=== PATIENT | female | born 2000 | race Caucasian/White ===

== ENCOUNTER 2020-03-22 01:08 | Inpatient (IN) | payer OTHER ==
[2020-03-22] MEDS ORDERED: DEXTROSE 5%-LACTATED RINGERS 1,000 ML IV SCH (05:15)
--- NOTE | 2020-03-22 05:30 | HP ---
Past Medical History - Primary Care Physician PCP:: Paramjit Hinds - Admission Chief Complaint: 19yo P0 with at EGA 37w4d admitted with PROM to L&D. History of Present Illness: with uncomplicated care. PROM at 11:30pm on 03/21/2020. History Source: Patient, Medical Record Limitations to Obtaining History: No Limitations - Past Medical History MEDICAL ASSISTANT OB GYN: No: Alzheimer's, CVA, Dementia, Migraine, Multiple Sclerosis, Peripheral Neuropathy, Parkinson's, Seizure, Syncope, TIA, Vertigo, Other Cardiovascular: No: AFIB, Aneurysm, Aortic Insufficiency, Aortic Stenosis, CAD, CHF, Deep Vein Thrombosis, HTN, Hyperlipdemia, [place], Mitral Insufficiency, Mitral Stenosis, Murmur, Pulmonary Hypertension, Other Pulmonary: No: Asthma, Bronchitis, Cancer, COPD, O2 Dependent, Pneumonia, Previously Intubated, Pulmonary Embolus, Pulmonary Fibrosis, Sleep Apnea, Other Gastrointestinal: No: Ascites, Cancer, Constipation, Crohn's Disease, Diverticulitis, Diverticulosis, Esophageal Varices, Gastritis, GERD, GI Bleed, Hemorrhoids, Hiatal Hernia, Inflamatory Bowel Disease, Irritable Bowel Disease, Pancreatitis, Peptic Ulcer Disease, Ulcerative Colitis, Other Hepatobiliary: No: Cirrhosis, Cholelithiasis, Cholecystitis, Choledocholithiasis, Hepatitis A, Hepatitis B, Hepatitis C, Other Renal/: No: Renal Failure, Renal Inusuff, BPH, Cancer, Hematuria, Hemodialysis, Neurogenic Bladder, Renal Calculi, UTI, Other Reproductive: No: Ectopic , Endometriosis, Fibroids, PID, Polycystic Ovary Syndrome, Postmenopausal, Other ...: 1 ...Para: 0 Heme/Onc: No: Anemia, B12 Deficiency, Bleeding Disorder, Cancer, Current Chemotherapy, Current Radiation Therapy, Hemochromatosis, Hypercoaguable State, Myeloproliferative Synd, Sickle Cell Disease, Sickle Cell Trait, Thrombocytopenia, Other Infectious Disease: No: AIDS, C-Diff, Herpes Zoster, HIV, MRSA, STD's, Tuberculosis, VREF, Other Psych: No: Addictions, Anxiety, Bipolar, Depression, Panic, Psychosis, Schizophrenia, Other Musculoskeletal: No: Bursitis, Chronic low back pain, Hemiparesis, Hemiplegia, Osteoarthritis, Paraplegia, Other Rheumatology: No: Fibromyalgia, Gout, Lupus, Rheumatoid Arthritis, Sarcoidosis, Vasculitis, Other ENT: No: Allergic Rhinitis, Sinusitis, Other Endocrine: No: Willard's Disease, [place]'s Disease, Diabetes Insipidus, Diabetes Mellitus, Hyperparathyroidism, Hyperthyroidism, Hypothyroidism, Osteopenia, SIADH, Other Dermatology: No: Basal Cell, Cellulitis, Eczema, Melanoma, Psoriasis, Squamous Cell, Other - Past Surgical History Past Surgical History: Yes: None Hx Myomectomy: No Hx Transabdominal Cerclage: No - Smoking History Have you smoked in the past 12 months: No - Alcohol/Substance Use Hx Alcohol Use: No History of Substance Use: reports: None - Social History Usual Living Arrangement: Yes: With Parent Do you think of yourself as: Straight/Heterosexual ADL: Independent History of Recent Travel: No Home Medications - Allergies Allergies/Adverse Reactions: Allergies Allergy/AdvReac Type Severity Reaction Status Date / Time No Known Allergies Allergy Verified 03/22/20 03:31 - Home Medications Home Medications: Ambulatory Orders Pnv No.95/Ferrous Fum/Folic AC [ Vitamin Tablet] 1 each PO DAILY 03/22/20 Family Medical History Family Hx Cancer: Mother (breast) Review of Systems - Review of Systems Constitutional: reports: No Symptoms, Other (leaking clear amniotic fluids) Eyes: reports: No Symptoms HENT: reports: No Symptoms Neck: reports: No Symptoms Cardiovascular: reports: No Symptoms Respiratory: reports: No Symptoms Gastrointestinal: reports: No Symptoms Genitourinary: reports: No Symptoms Breasts: reports: No Symptoms Reported Musculoskeletal: reports: No Symptoms Integumentary: reports: No Symptoms Neurological: reports: No Symptoms Endocrine: reports: No Symptoms Hematology/Lymphatic: reports: No Symptoms Psychiatric: reports: No Symptoms Physical Exam - Maternity Vital Signs: Vital Signs Temperature 98.5 F 03/22/20 04:00 Pulse Rate 79 03/22/20 03:00 Respiratory Rate 20 03/22/20 03:00 Blood Pressure 131/82 03/22/20 03:00 O2 Sat by Pulse Oximetry (%) Constitutional: Yes: Well Nourished, No Distress, Calm Eyes: Yes: WNL, Conjunctiva Clear, EOM Intact HENT: Yes: WNL, Atraumatic, Normocephalic Neck: Yes: WNL, Supple, Trachea Midline Cardiovascular: Yes: WNL, Regular Rate and Rhythm Lungs: Clear to auscultation, Normal air movement Breast(s): Yes: WNL - Abdominal Exam/OB Fundal Height: 38 Number of Fetuses: Single Presentation: Vertex Contractions: Yes Regularity: Irregular Intensity: Unaware Monitor Mode: External Heart Rate (range): 130 Heart Rate Location: Midline Category: I Accelerations: Non-Uniform Decelerations: None - Vaginal Exam/OB Vaginal Bleeding: No Dilatation (cm): 0 Effacement (%): 0 Amniotic Membrane Status: Leaking Nitrazine Test: Positive Amniotic Fluid: Yes: Clear Presentation: Vertex/Position Station: -3 - Physical Exam Musculoskeletal: Yes: WNL Extremities: Yes: WNL Edema: No Integumentary: Yes: WNL Deep Tendon Reflex Grade: Normal +2 ...Motor Strength: WNL Psychiatric: Yes: WNL, Alert, Oriented Hemorrhage Risk Assessment - Risk Factors Medium Risk Factors: Yes: None High Risk Factors: Yes: None Risk Score: 1 Risk Level: Medium Risk Imaging - Results Ultrasound: Report Reviewed Assessment/Plan 19yo P0 with at EGA 37w4d admitted with PROM to L&D. The pt is not in labor. Fetus with Category I tracing. We discussed management plans. I explained labor induction vs. expectant management and risks, benefits of both plans. I explained the risks of chorioamnionitis, uterine tachysystole, distress, etc. The pt prefers expectant management and refused labor indx.
[2020-03-22 05:33] LABS: BASO % 0.6 % (0-2.0); EOS % 0.7 % (0-4.5); HEMATOCRIT 31.6 % (32.4-45.2); HEMOGLOBIN 10.6 GM/dL (10.7-15.3); LYMPH % 20.2 % (8-40); MCHC 33.5 g/dl (32.0-36.0); MEAN CELL VOLUME 86.7 fl (80-96); MEAN PLT VOLUME 8.3 fl (7.5-11.1); MONO % 6.3 % (3.8-10.2); NEUT % 72.2 % (42.8-82.8); PLATELET COUNT 259 K/MM3 (134-434); RBC 3.64 M/mm3 (3.60-5.2); RDW 13.5 % (11.6-15.6); WHITE BLOOD COUNT 10.1 K/mm3 (4.0-10.0)
[2020-03-22 05:42] LABS: INR 0.85 (0.83-1.09)
[2020-03-22 05:44] LABS: ACTIVATED PTT 24.7 SECONDS (25.2-36.5)
[2020-03-22 05:54] VITALS: BMI 29.5
[2020-03-22 06:03] LABS: CALCIUM 8.6 mg/dL (8.5-10.1); CREATININE 0.5 mg/dL (0.55-1.3); POTASSIUM 4.1 mmol/L (3.5-5.1)
[2020-03-22 09:22] LABS: POC NITRAZINE POS
[2020-03-22] MEDS ORDERED: OXYTOCIN 30 UNITS in 0.9% NS 30 UNIT/500 ML INFUS.BAG IVPB ONE (11:45)
--- NOTE | 2020-03-22 12:06 | PN ---
Ante-Partal Exam - Subjective Subjective: Patient reports contractions Q 10 minutes, 8/10 pain Vital Signs: Vital Signs Temperature 98.7 F 03/22/20 11:00 Pulse Rate 71 03/22/20 11:00 Respiratory Rate 18 03/22/20 11:00 Blood Pressure 128/74 03/22/20 11:00 O2 Sat by Pulse Oximetry (%) Bleeding: No Headache: No Visual changes: No Right upper quadrant pain: No - Contractions Contractions: Yes Regularity: Irregular Intensity: Moderate Monitor Mode: External - Exam during Labor Heart Rate: 140 Variability: Moderate Category: I Monitor Accelerations: Present Monitor Decelerations: None Exam: Vaginal Dilatation (cm): 3 Effacement (%): 50 Amniotic Membrane Status: Ruptured Amniotic Fluid: Clear Presentation: Vertex Station: -3 - Intrapartum Hemorrhage Risk Medium Risk Factors: None High Risk Factors: None Risk Score: 0 Risk Level: Low Risk - Assessment/Plan Assessment/Plan: 19 yo @ 37 wks, PROM 1. Irregular contractions, discussed augmentation with pitocin. Discussed risks/benefts including but not limited to uterine tachysystole, heartrate changes and intolerance of labor. Reviewed risk of prolonged rupture, risk of chorioamnionitis, risk of delivery. She expressed understanding. 2. GBS neg 3. Pain well controlled, will offer pain control upon patient request 4. Will proceed with expectant management.
[2020-03-22] MEDS ORDERED: OXYTOCIN 30 UNITS in 0.9% NS 30 UNIT/500 ML INFUS.BAG IVPB SCH (12:15)
[2020-03-22] MEDS ORDERED: PCA PUMP NR ONE ×2 (12:54→20:48)
[2020-03-22] MEDS ORDERED: FENTANYL/BUPIVACAINE/NS/PF - PCEA - 50 ML DISP.SYRIN EP ONE ×3 (12:55→20:48)
[2020-03-22] MEDS ORDERED: NALOXONE HCL 0.4 MG/ML VIAL IVPUSH PRN (13:14)
[2020-03-22] MEDS ORDERED: FENTANYL/BUPIVACAINE/NS/PF - PCEA - 50 ML DISP.SYRIN EP SCH (13:15)
[2020-03-22] MEDS ORDERED: BUPIVACAINE HCL/PF 0.25% (2.5MG/ML) 10 ML VIAL ONE ×2 (13:16→18:16)
[2020-03-22] MEDS ORDERED: ONDANSETRON 4 MG/2 ML VIAL IVPB ONE (14:23)
[2020-03-22] MEDS ORDERED: ONDANSETRON 4 MG/2 ML VIAL ONE (14:35)
--- NOTE | 2020-03-22 15:58 | PN ---
Ante-Partal Exam - Subjective Subjective: Patient comfortable s/p epidural Vital Signs: Vital Signs Temperature 98.5 F 03/22/20 15:00 Pulse Rate 64 03/22/20 15:15 Respiratory Rate 17 03/22/20 15:15 Blood Pressure 131/80 03/22/20 15:15 O2 Sat by Pulse Oximetry (%) 99 03/22/20 15:15 Bleeding: No Headache: No Visual changes: No Right upper quadrant pain: No - Contractions Contractions: Yes Regularity: Regular Intensity: Unaware Monitor Mode: External - Exam during Labor Heart Rate: 145 Variability: Moderate Category: I Monitor Accelerations: Present Monitor Decelerations: None Exam: Vaginal Dilatation (cm): 4 Effacement (%): 80 Presentation: Vertex Station: -2 - Intrapartum Hemorrhage Risk Medium Risk Factors: None High Risk Factors: None Risk Score: 0 Risk Level: Low Risk - Assessment/Plan Assessment/Plan: 19 yo @ 37 wks, PROM on pitocin 1. Pitocin at 8 Cervical change noted Will continue pitocin per protocol 2. GBS neg 3. Pain well controlled with epidural 4. Will proceed with expectant management
[2020-03-22] MEDS ORDERED: AMPICILLIN - 2 GM in SODIUM CHLORIDE 100 ML IVPB ONE (18:20)
[2020-03-22] MEDS ORDERED: AMPICILLIN SODIUM 2 GM VIAL ONE (18:28)
[2020-03-22] MEDS ORDERED: ELECTROLYTE-148 SOLN 1,000 ML IV SCH (18:30)
--- NOTE | 2020-03-22 21:09 | PN ---
Ante-Partal Exam - Subjective Subjective: Patient comfortable Vital Signs: Vital Signs Temperature 98.0 F 03/22/20 20:00 Pulse Rate 98 H 03/22/20 20:00 Respiratory Rate 18 03/22/20 20:00 Blood Pressure 142/97 03/22/20 20:00 O2 Sat by Pulse Oximetry (%) 100 03/22/20 18:45 Bleeding: Yes (bloody show) Headache: No Visual changes: No Right upper quadrant pain: No - Contractions Contractions: Yes Intensity: Unaware Monitor Mode: External - Exam during Labor Heart Rate: 150 Variability: Moderate Category: II Monitor Accelerations: Present Monitor Decelerations: Variable Exam: Vaginal Dilatation (cm): 9 Effacement (%): 100 Amniotic Membrane Status: Ruptured Presentation: Vertex Station: -1 - Intrapartum Hemorrhage Risk Medium Risk Factors: None High Risk Factors: None Risk Score: 0 Risk Level: Low Risk - Assessment/Plan Assessment/Plan: 19 yo @ 37+ wks, augmentation of labor for PROM 1. Good cervical change, awaiting descent of head Will continue pitocin per protocol 2. GBS negative, was given ampicillin per hospital protocol 3. Pain well controlled with epidural 4. Will proceed with expectant management
[2020-03-22] MEDS ORDERED: OXYTOCIN 20 UNITS in 0.9% NS 20 UNIT/1,000 ML INFUS.BAG IV ONE (21:42)
[2020-03-22] MEDS ORDERED: LIDOCAINE HCL 1% PRESERVATIVE FREE - 30ML VIAL ONE (21:42)
[2020-03-22] MEDS ORDERED: AMPICILLIN SODIUM 1 GM VIAL ONE ×2 (21:43→21:49)
[2020-03-22] MEDS ORDERED: AMPICILLIN - 1 GM in SODIUM CHLORIDE 100 ML IVPB SCH (22:20)
[2020-03-23] MEDS ORDERED: BISACODYL 10 MG SUPP.RECT RC PRN
[2020-03-23] MEDS ORDERED: METHYLERGONOVINE MALEATE 0.2 MG/1 ML AMP IM PRN
[2020-03-23] MEDS ORDERED: OXYTOCIN 20 UNITS in 0.9% NS 20 UNIT/1,000 ML INFUS.BAG IV SCH
[2020-03-23] MEDS ORDERED: OXYTOCIN 20 UNITS in 0.9% NS 1,000 ML IV SCH
[2020-03-23] MEDS ORDERED: BENZOCAINE 20% 57 GM BOTTLE TP PRN
[2020-03-23] MEDS ORDERED: IBUPROFEN 600 MG TABLET (FP) PO PRN
[2020-03-23] MEDS ORDERED: ACETAMINOPHEN 325 MG TABLET (FP) PO PRN
[2020-03-23] MEDS ORDERED: WITCH HAZEL 50% (TUCKS) 40 PAD/JAR PAD TP PRN
[2020-03-23] MEDS ORDERED: BENZOCAINE 28 GM HEMORRHOIDAL OINTMENT TP PRN
--- NOTE | 2020-03-23 00:04 | PN ---
Delivery - Delivery Vaginal Delivery: No Problems Type of Anesthesia: Epidural Episiotomy/Laceration: Midline, Perineal Extension/lac (bilateral labial laceration), Vaginal Extension/lac, 2nd degree Delivery, Single - Stages of Labor Date 2nd Stage Initiated: 03/22/20 Date of Delivery: 03/22/20 Time of Delivery: 23:16 Date Placenta Delivered: 03/22/20 Time Placenta Delivered: 23:51 Placenta: Yes: Spontaneous - Condition of Gender: Male Position: Left, OA Total Hours ROM (Hrs/Mins): 24 hours, 16 minutes - 1 Minute Total Score: 8 5 Minutes Total Score: 9 - Feeding Plan Initial Plan: Exclusive throughout hospitalization Remarks - Remarks Remarks: Patient progressed to fully dilated and at 2316 via delivered a viable male in JACKIE position, APGARs 8,9. Weight and length unknown at this time. Head delivered spontaneously followed by shoulders and body without difficulty. Body cord delivered through. Infant with spontaneous cry and placed on mother's abdomen. Nose and mouth was bulb suctioned. Cord was clamped and cut. Perineum and vagina examined, a second degree laceration, bilateral sulcal extension, bilateral labial laceration was noted and repaired in the usual fashion. Rectal exam revealed no sutures in rectum. Placenta was delivered spontaneously and intact. 20 units of pitocin in 1 L IVF was given. All counts correct x 2. Mother and infant stable in LDR. EBL 400cc.
[2020-03-23] MEDS ORDERED: diphenhydrAMINE HCL 25 MG CAPSULE (FP) PO ONE ×2 (00:45→00:54)
[2020-03-23 08:38] LABS: BASO % 0.1 % (0-2.0); EOS % 0.4 % (0-4.5); HEMATOCRIT 26.6 % (32.4-45.2); HEMOGLOBIN 8.8 GM/dL (10.7-15.3); LYMPH % 9.4 % (8-40); MCH 28.9 pg (25.7-33.7); MCHC 33.1 g/dl (32.0-36.0); MEAN CELL VOLUME 87.2 fl (80-96); MEAN PLT VOLUME 8.4 fl (7.5-11.1); MONO % 4.6 % (3.8-10.2); NEUT % 85.5 % (42.8-82.8); PLATELET COUNT 215 K/MM3 (134-434); RBC 3.05 M/mm3 (3.60-5.2); RDW 13.2 % (11.6-15.6); WHITE BLOOD COUNT 16.8 K/mm3 (4.0-10.0)
--- NOTE | 2020-03-23 09:47 | PN ---
Post Progress Note - Subjective Subjective: Patient reports itching, starting last night on R leg, neck and abdomen Seems to be spreading No known drug allergies received ampicllin for GBS unknown status; has received in past No nausea or vomting No fevers orchills No chest pain or shortness of breath No wheezing Post Day: 1 Type of Delivery: Vital Signs: Vital Signs Temperature 98.8 F 03/23/20 05:31 Pulse Rate 100 H 03/23/20 05:31 Respiratory Rate 20 03/23/20 05:31 Blood Pressure 114/75 03/23/20 05:31 O2 Sat by Pulse Oximetry (%) 99 03/23/20 01:00 Breast Exam: Yes: Soft Uterus: Yes: Fundus Firm Abdomen/GI: Yes: Abdomen soft, Passing flatus, Tolerating PO. No: Abdominal Distention, Tender Lochia: Yes: Rubra Lochia, amount: Moderate Extremities: Yes: Calves non-tender. No: Edema Perineum: Yes: Laceration Activity: Ambulating - Labs Labs: CBC WBC 16.8 K/mm3 (4.0-10.0) H 03/23/20 07:40 RBC 3.05 M/mm3 (3.60-5.2) L 03/23/20 07:40 Hgb 8.8 GM/dL (10.7-15.3) L 03/23/20 07:40 Hct 26.6 % (32.4-45.2) L D 03/23/20 07:40 MCV 87.2 fl (80-96) 03/23/20 07:40 MCH 28.9 pg (25.7-33.7) 03/23/20 07:40 MCHC 33.1 g/dl (32.0-36.0) 03/23/20 07:40 RDW 13.2 % (11.6-15.6) 03/23/20 07:40 Plt Count 215 K/MM3 (134-434) 03/23/20 07:40 MPV 8.4 fl (7.5-11.1) 03/23/20 07:40 Absolute Neuts (auto) 14.4 K/mm3 (1.5-8.0) H 03/23/20 07:40 Neutrophils % 85.5 % (42.8-82.8) H 03/23/20 07:40 Lymphocytes % 9.4 % (8-40) D 03/23/20 07:40 Monocytes % 4.6 % (3.8-10.2) 03/23/20 07:40 Eosinophils % 0.4 % (0-4.5) 03/23/20 07:40 Basophils % 0.1 % (0-2.0) 03/23/20 07:40 Nucleated RBC % 0 % (0-0) 03/23/20 07:40 Assessment/Plan 19 yo PPD # 1 s/p , afebrile, vital signs stable, mild asymptomatic namie 1. routine care 2. Urticaria - not relieved s/p benadryl will add loratadine 10 mg, may increase to BID if needed will order topical steroid / calamine lotion 3. Asymptomatic anemia noted 4. encouraged 5. Will continue to monitor
[2020-03-23] MEDS: CALAMINE 8% TOPICAL LOTION 177 ML BOTTLE TP PRN (10:47)
[2020-03-23] MEDS: LORATADINE 10 MG TABLET PO SCH (10:47)
[2020-03-23] MEDS: HYDROCORTISONE 2.5% LOTION - 1 BOTTLE TP PRN (10:48)
--- NOTE | 2020-03-24 07:34 | DS ---
Physical Exam-EQUAL OPPORTUNITY DIRECTOR Vital Signs: Vital Signs Temperature 97.6 F 03/23/20 20:58 Pulse Rate 109 H 03/23/20 20:58 Respiratory Rate 20 03/23/20 20:58 Blood Pressure 105/70 03/23/20 20:58 O2 Sat by Pulse Oximetry (%) 99 03/23/20 01:00 Constitutional: Yes: Well Nourished, No Distress, Calm Eyes: Yes: WNL, Conjunctiva Clear, EOM Intact HENT: Yes: WNL, Atraumatic, Normocephalic Neck: Yes: WNL, Supple, Trachea Midline Cardiovascular: Yes: WNL, Regular Rate and Rhythm Respiratory: Yes: WNL, Regular, CTA Bilaterally Gastrointestinal: Yes: WNL ...Rectal Exam: Yes: WNL Renal/: Yes: WNL ....Post : Yes: Uterus firm, Uterus non-tender, Slight lochia rubra Breast(s): Yes: WNL Musculoskeletal: Yes: WNL Extremities: Yes: WNL Edema: No Integumentary: Yes: WNL Neurological: Yes: WNL, Alert, Oriented ...Motor Strength: WNL Psychiatric: Yes: WNL, Alert, Oriented Labs: CBC, BMP 03/23/20 07:40 03/22/20 04:45 Delivery - Delivery Vaginal Delivery: No Problems Type of Anesthesia: Epidural Episiotomy/Laceration: Midline, Perineal Extension/lac (bilateral labial laceration), Vaginal Extension/lac, 2nd degree EBL (cc): 400 Delivery, Single - Stages of Labor Date 1st Stage Initiatied: 03/22/20 Time 1st Stage Initiated: 13:00 Date 2nd Stage Initiated: 03/22/20 Time 2nd Stage Initiated: 22:00 Date of Delivery: 03/22/20 Time of Delivery: 23:16 Time Placenta Delivered: 23:51 Placenta: Yes: Spontaneous - Condition of Gender: Male Weight: 5 lb 13 oz Position: Left, OA Total Hours ROM (Hrs/Mins): 24 hours, 16 minutes - 1 Minute Total Score: 8 5 Minutes Total Score: 9 - [place]by Feeding Plan Initial Plan: Exclusive throughout hospitalization Discharge Summary Problems reviewed: Yes Reason For Visit: LABOR ADMIT Procedures: Principal: Hospital Course: no complication Condition: Good - Instructions Diet, Activity, Other Instructions: regular diet, no intercourse, follow up office 4 weeks, if fever pain, heavy vaginal bleeding call MD Referrals: Prashant Byrd MD [Staff Physician] - Disposition: HOME - Home Medications Comprehensive Discharge Medication List: Ambulatory Orders Pnv No.95/Ferrous Fum/Folic AC [ Vitamin Tablet] 1 each PO DAILY 03/22/20 Ibuprofen [Motrin -] 600 mg PO QID #28 tablet 03/23/20
[2020-03-24] MEDS: LORATADINE 10 MG TABLET PO SCH (10:55)
[2020-03-24] MEDS: CALAMINE 8% TOPICAL LOTION 177 ML BOTTLE TP PRN (10:56)
[2020-03-24] MEDS: HYDROCORTISONE 2.5% LOTION - 1 BOTTLE TP PRN (10:56)
[2020-03-24 12:39] VITALS: BP 112/78; PULSE 103; TEMP 98.1
--- NOTE | 2020-03-24 17:34 | PATH ---
Surgical Pathology Report Patient Name: DAVE LUU [facility]. Rec. #: [id number] /Age/Gender: 2000 (Age: 19) / F Account: [id number] Location: [facility] OBS/ASSEMBLER DECK AND HULL Taken: 03/22/2020 Received: 03/23/2020 Reported: 03/24/2020 Physicians: Neelam Garcia Specimen(s) Received PLACENTA Clinical History , 37.4 weeks gestation PROM, > 23H rupture of membranes Final Diagnosis PLACENTA, DELIVERY: 477 G THIRD TRIMESTER PLACENTA WITH MILD ACUTE CHORIOAMNIONITIS. TRIVASCULAR UMBILICAL CORD WITH MEMBRANOUS INSERTION. Electronically Signed Yamel Mcqueen M.D. Gross Description The specimen is received fresh labeled "placenta" is a 477 gram, bilobed placenta (18 x 13 x 1.2 cm and 17 x 16 x 1.2 cm) with attached membranes and umbilical cord. The attached membranes are garcia, translucent, with focal opacities, and insert marginally. The umbilical cord measures 26 cm. in length and averages 1.2 cm. in diameter. The cord shows membranous insertion. No true knots or strictures are identified. Cut surface of the umbilical cord reveals 3 vessels. The surface is durbin-blue with minimal fibrin deposition and appropriate caliber vessels. The maternal surface is red-brown with focal defects. Sectioning reveals red-brown, spongy parenchyma. No lesions are identified. Siderographer sections are submitted in three cassettes as follows: 1- membrane rolls and umbilical cord; 2-3- full thickness sections of placenta. MLSZ/03/23/2020 sanml/03/23/2020
[2020-03-24] MEDS ORDERED: SENNOSIDES/DOCUSATE COMBO (SENNA PLUS) TABLET (UD) PO PRN (22:00)
== END 2020-03-24 12:10 | disposition home or self-care (01) | DRG 805 ==
LOC: JLDR 01:08 → J3W 03-23 01:49
PROVIDERS: ADMIT Obstetrics & Gynecology; ATTEND Obstetrics & Gynecology
PROC: 10E0XZZ Delivery of Products of Conception, External Approach (ICD-10-PCS; principal; 2020-03-22)
PROC: 0KQM0ZZ Repair Perineum Muscle, Open Approach (ICD-10-PCS; 2020-03-22)
PROC: 0W8NXZZ Division of Female Perineum, External Approach (ICD-10-PCS; 2020-03-22)
DX: O70.1 Second degree perineal laceration during delivery (principal); O41.1230 Chorioamnionitis, third trimester, not applicable or unspecified; Z37.0 Single live birth; O99.02 Anemia complicating childbirth; L50.9 Urticaria, unspecified; O26.893 Other specified pregnancy related conditions, third trimester; Z3A.37 37 weeks gestation of pregnancy; O42.02 Full-term premature rupture of membranes, onset of labor within 24 hours of rupture
CPT/HCPCS: 36415; 59409; 80048; 83986-QW; 85025; 85610; 85730; 86780; 86850; 86900; 86901; 88307-TC; U0003